=== PATIENT | female | born 1985 | race Two or more races ===

== ENCOUNTER 2016-07-04 02:24 | Inpatient (IN) | payer SELFPAY ==
[~2016-07-04] VITALS: Ht 167.6 cm; Wt 101.2 kg
[2016-07-04] MEDS ORDERED: OXYTOCIN 30 UNIT/500 ML PREMIX 500 ML IV PRN ×3 (03:00→11:30)
[2016-07-04] MEDS ORDERED: TERBUTALINE 1 MG/ML VIAL. SQ PRN (03:00)
[2016-07-04] MEDS ORDERED: fentaNYL PF VIAL 100 MCG/2 ML VIAL IV PRN (03:00)
[2016-07-04] MEDS ORDERED: IBUPROFEN 800 MG TABLET. PO PRN (03:00)
[2016-07-04] MEDS ORDERED: ACETAMINOPHEN 325 MG TABLET. PO PRN ×2 (03:00→11:30)
[2016-07-04] MEDS ORDERED: ONDANSETRON PF 4 MG/2 ML VIAL. IV PRN (03:00)
[2016-07-04] MEDS ORDERED: 0.9 % SODIUM CHLORIDE 10 ML DISP.SYRIN. IV PRN ×2 (03:00→11:30)
[2016-07-04] MEDS ORDERED: LIDOCAINE 1% PF 30 ML VIAL. INJ PRN (03:00)
[2016-07-04 03:12] LABS: BILIRUBIN,URINE NEGATIVE (NEG); GLUCOSE,URINE NEGATIVE (NEG); NITRITE,URINE NEGATIVE (NEG); PROTEIN,URINE NEGATIVE (NEG-TRACE)
[2016-07-04 03:23] LABS: BACTERIA,URINE FEW /HPF (0-FEW); SQUAMOUS EPITHELIAL CELL,UR MOD /LPF
[2016-07-04] MEDS: IV RINGERS,LACTATED 1000ML 1,000 ML IV SCH ×2 (03:55→08:40)
[2016-07-04 04:45] LABS: BASO % 1 % (0-3); EOS % 1 % (0-3); HEMATOCRIT 32.8 % (36.0-47.0); HEMOGLOBIN 11.2 g/dL (12.0-15.5); LYMPH # 1.5 x10^3/uL (1.0-4.8); LYMPH % 22 % (24-48); MEAN CORPUSCULAR HEMOGLOBIN 29 pg (25-35); MEAN CORPUSCULAR HGB CONC 34 g/dL (31-37); MEAN CORPUSCULAR VOLUME 84 fL (79-100); MONO % 6 % (0-9); NEUT % 72 % (31-73); PLATELET COUNT 187 x10^3/uL (140-400); RED CELL DISTRIBUTION WIDTH 13.4 % (11.5-14.5); WHITE BLOOD COUNT 6.8 x10^3/uL (4.0-11.0)
[2016-07-04 05:48] VITALS: BP 152/81
[2016-07-04] MEDS: BUTORPHANOL 2 MG/ML VIAL. IV PRN ×2 (07:39→09:06)
--- NOTE | 2016-07-04 11:25 | PDOC1 ---
OB - History Hx of Present Care: Good Care Ultrasounds: Abnormal US findings (see reports) Obstetrical Complications: None Medical Complications: None Past Family/Social History * Past Medical, Surgical, Family and Obstetric Histories reviewed from chart. Blood Type: O+ Rubella: Immune RPR/VDRL: Negative GBS Status: Negative HBsAG: Negative OB - Chief Complaint & HPI Date of Admission: Date of Admission: Jul 04, 2016 at 02:24 Chief Complaint/History : 4 Para: 1 EDC: July 11, 2016 Reason for admission: active labor Admission Nurse Assessment Rev: Yes Problems: OB - Admission Exam Physical Exam Vitals: VS - Last 72 Hours, by Label Date Time Temp Pulse Resp B/P Pulse Ox O2 Delivery O2 Flow Rate FiO2 07/04/16 05:48 98.3 71 18 152/81 Room Air 98.3 HEENT: Normal, Nasal Mucosa Normal, Oropharynx Normal, Moist Membranes, Fontanelles Normal Heart: Regular Rate Lungs: Clear, Equal Abdomen: Gravid Extremities: Normal Pulses, No tenderness or swelling Reflexes: Normal Cervical Dilatation: 3cm Effacement: 50% Station: -1 Membranes: Ruptured Amniotic Fluid: Clear Heart Rate: Normal Accelerations: Accelerations Present Short Term Variability: Present Contractions on Admission: < 5 Minutes Apart Intensity: Moderate Assessment/Plan Assessment/Plan TIUP Labor ACSVD JEFFERY MCRAE MD Jul 04, 2016 11:25
[2016-07-04] MEDS ORDERED: ZOLPIDEM 5 MG TABLET. PO PRN (11:30)
[2016-07-04] MEDS ORDERED: MAG HYDROX/ALUMINUM HYD/SIMETH 30 ML ORAL.SUSP PO PRN (11:30)
[2016-07-04] MEDS ORDERED: PHENYLEPH/MINERAL OIL/PETROLAT RECTAL OINTMENT 28GM TUBE. RC PRN (11:30)
[2016-07-04] MEDS ORDERED: SIMETHICONE 80 MG TAB.CHEW PO PRN (11:30)
[2016-07-04] MEDS ORDERED: MAGNESIUM HYDROXIDE 2,400 MG/30 ML ORAL.SUSP. PO PRN (11:30)
[2016-07-04] MEDS ORDERED: HYDROCORTISONE 1% TOPICAL OINTMENT 30GM TUBE. TP PRN (11:30)
[2016-07-04] MEDS ORDERED: diphenhydrAMINE HCL 25 MG CAPSULE PO PRN (11:30)
[2016-07-04] MEDS ORDERED: BENZOCAINE 20% TOPICAL AEROSOL SPRAY 57GM CAN. TP PRN (11:30)
[2016-07-04] MEDS: IBUPROFEN 800 MG TABLET. PO SCH ×2 (12:33→21:19)
[2016-07-04] MEDS: HYDROCODONE/APAP 5/325MG TABLET. PO PRN ×2 (13:48→21:19)
[2016-07-04 14:00] VITALS: BP 118/65
[2016-07-04 15:45] VITALS: BP 119/65
[2016-07-04 22:29] VITALS: BP 127/61
[2016-07-05 05:20] VITALS: BP 90/55
[2016-07-05 06:16] LABS: RPR REFLEX Non Reactive (Non Reactive)
[2016-07-05] MEDS: FERROUS SULFATE 325 MG TABLET. PO SCH ×3 (08:00→17:39)
[2016-07-05] MEDS: IBUPROFEN 800 MG TABLET. PO SCH ×2 (08:39→15:22)
--- NOTE | 2016-07-05 14:03 | PDOC ---
Provider Note Provider Note Doing well VSS Uterus NTTP FU in AM JEFFERY MCRAE MD Jul 05, 2016 14:03
[2016-07-05] MEDS: DOCUSATE SODIUM 100 MG CAPSULE. PO PRN (15:22)
[2016-07-05 16:03] VITALS: BP 109/53
[2016-07-05 23:16] VITALS: BP 118/82
[2016-07-06 04:58] VITALS: BP 114/70
[2016-07-06] MEDS: FERROUS SULFATE 325 MG TABLET. PO SCH (08:51)
[2016-07-06] MEDS: DOCUSATE SODIUM 100 MG CAPSULE. PO PRN (08:52)
[2016-07-06] MEDS: IBUPROFEN 800 MG TABLET. PO SCH ×2 (08:53→16:51)
[2016-07-06 11:17] VITALS: BP 106/60
[2016-07-06 16:00] VITALS: BP 110/66
--- NOTE | 2016-07-06 17:37 | PDOC3 ---
OB DISCHARGE SUMMARY DATE OF ADMISSION: 07/04/16 DATE OF DISCHARGE: 07/06/16 REASON FOR ADMISSION: Onset of labor PROCEDURES: Ultrasound INTRAPARTUM PROCEDURES: Spontanous Vag Deliv PROCEDURES: None OPERATIONS: None DISCHARGE DIAGNOSIS: Term Delivered DISCHARGE INFORMATION: Activity, Diet HOSPITAL COURSE unremarkable CONDITION AT DISCHARGE Stable JEFFERY MCRAE MD Jul 06, 2016 17:37
--- NOTE | 2016-07-06 17:41 | PDOC ---
VAGINAL DELIVERY DATE DATE: 07/06/16 TIME: 17:37 : 4 Para: 1 EDC: Jul 06, 2016 PLACENTA: Spontaneous 8/9 SEX: Male WEIGHT 8/1 Amniotic Fluid: Clear EPISIOTOMY: No EXTENSION: No EBL 400cc COMPLICATIONS None CONDITION Stable Signs of Intrauterine Infectio: None Shoulder Dystocia: No DIAGNOSIS TIUP del Problems: JEFFERY MCRAE MD Jul 06, 2016 17:41
[2016-07-06] MEDS ORDERED: HYDR-971 PO (17:43)
[2016-07-06] MEDS ORDERED: NAPR500T PO (17:43)
== END 2016-07-06 18:00 | disposition home or self-care (01) | DRG 775 ==
LOC: OBSVTOIN 02:24 → 3 SO LND 02:24 → 3 NORTH 13:44
PROVIDERS: ADMIT Specialist; ATTEND Specialist
PROC: 10E0XZZ Delivery of Products of Conception, External Approach (ICD-10-PCS; principal; 2016-07-06)
DX: O80 Encounter for full-term uncomplicated delivery (principal); Z37.0 Single live birth; Z3A.00 Weeks of gestation of pregnancy not specified
CPT/HCPCS: 36415; 81001; 85014; 85027; 86593; 86850; 86900; 86901; 87086; J2590; J7120

== ENCOUNTER 2017-12-04 19:36 | Observation (INO) | payer MEDICAID ==
[~2017-12-04 19:36] MED LIST: HYDR-971 PO; NAPR-683 PO
[2017-12-04] MEDS ORDERED: IV RINGERS,LACTATED 1000ML 1,000 ML IV SCH (19:45)
[2017-12-04 20:06] LABS: BILIRUBIN,URINE NEGATIVE (NEG); CLARITY,URINE CLEAR; COLOR,URINE YELLOW; NITRITE,URINE NEGATIVE (NEG); PH,URINE 5.5; PROTEIN,URINE NEGATIVE (NEG-TRACE)
[2017-12-04 20:21] LABS: BARBITURATES NEG (NEG); BENZODIAZEPINES NEG (NEG); CANNABINOIDS NEG (NEG); COCAINE NEG (NEG); METHADONE NEG (NEG); OPIATES NEG (NEG); PHENCYCLIDINE NEG (NEG)
[2017-12-04 20:22] LABS: BACTERIA,URINE FEW /HPF (0-FEW); SQUAMOUS EPITHELIAL CELL,UR MOD /LPF; WBC,URINE >40 /HPF (0-4)
[2017-12-04 20:53] LABS: AMPHETAMINE/METHAMPHETAMINE NEG (NEG)
== END 2017-12-04 21:28 | disposition home or self-care (01) ==
LOC: 3 SO LND 19:36
PROVIDERS: ADMIT Obstetrics & Gynecology; ATTEND Obstetrics & Gynecology
DX: O62.9 Abnormality of forces of labor, unspecified (principal); Z3A.39 39 weeks gestation of pregnancy; Z79.899 Other long term (current) drug therapy
CPT/HCPCS: 80307; 81001; 87086; G0378; G0379; G0479